=== PATIENT | female | born 1990 | race African-American/Black ===

== ENCOUNTER 2022-05-13 14:30 | Inpatient (IN) | payer OTHER ==
[2022-05-13 15:55] LABS: RETICULOCYTES 1.99 % (0.5-1.5)
[2022-05-13 16:41] LABS: URIC ACID 7.4 mg/dL (2.6-7.2)
[2022-05-13 17:55] LABS: BASO % 0.3 % (0-2.0); EOS % 0.6 % (0-4.5); HEMATOCRIT 34.7 % (32.4-45.2); HEMOGLOBIN 11.3 GM/dL (10.7-15.3); LYMPH % 24.6 % (8-40); MCH 28.7 pg (25.7-33.7); MCHC 32.6 g/dl (32.0-36.0); MEAN CELL VOLUME 88.1 fl (80-96); MEAN PLT VOLUME 11.1 fl (7.5-11.1); MONO % 8.8 % (3.8-10.2); NEUT % 65.7 % (42.8-82.8); PLATELET COUNT 210 10^3/uL (134-434); RBC 3.95 M/mm3 (3.60-5.2); RDW 14.1 % (11.6-15.6); WHITE BLOOD COUNT 5.1 K/mm3 (4.0-10.0)
[2022-05-13 18:00] LABS: INR 0.96 (0.83-1.09)
[2022-05-13 18:03] LABS: ACTIVATED PTT 26.9 SECONDS (25.2-36.5)
[2022-05-13 18:19] VITALS: BMI 25.0
[2022-05-13 18:19] LABS: CALCIUM 8.8 mg/dL (8.5-10.1)
[2022-05-13 18:20] LABS: BLOOD UREA NITROGEN 13.4 mg/dL (7-18)
[2022-05-13] MEDS: ELECTROLYTE-148 SOLN 1,000 ML IV SCH (18:20)
[2022-05-13 18:23] LABS: CREATININE 1.1 mg/dL (0.55-1.3)
[2022-05-13] MEDS ORDERED: OXYTOCIN 30 UNITS in 0.9% NS 30 UNIT/500 ML INFUS.BAG IVPB ONE (18:41)
[2022-05-13] MEDS: OXYTOCIN 30 UNITS in 0.9% NS 30 UNIT/500 ML INFUS.BAG IVPB SCH (18:45)
[2022-05-13 19:14] LABS: HIV INTERPRETATION NEGATIVE (NEGATIVE)
[2022-05-14] MEDS ORDERED: FENTANYL/BUPIVACAINE/NS/PF - PCEA - 50 ML DISP.SYRIN EP ONE (17:23)
[2022-05-14] MEDS ORDERED: NALOXONE HCL 0.4 MG/ML VIAL IVPUSH PRN (18:23)
[2022-05-14] MEDS ORDERED: FENTANYL/BUPIVACAINE/NS/PF - PCEA - 50 ML DISP.SYRIN EP SCH (18:30)
[2022-05-14] MEDS ORDERED: AMPICILLIN SODIUM 2 GM VIAL ONE (18:49)
[2022-05-14] MEDS ORDERED: AMPICILLIN - 2 GM in SODIUM CHLORIDE 100 ML IVPB ONE (19:00)
[2022-05-14] MEDS ORDERED: AMPICILLIN SODIUM 1 GM VIAL ONE (22:10)
[2022-05-14] MEDS ORDERED: AMPICILLIN - 1 GM in SODIUM CHLORIDE 100 ML IVPB SCH (23:00)
[2022-05-14] MEDS ORDERED: OXYTOCIN 20 UNITS in 0.9% NS 20 UNIT/1,000 ML INFUS.BAG IV ONE (23:04)
[2022-05-15] MEDS ORDERED: CITRIC ACID/SODIUM CITRATE 30 ML UNIT-DOSE CUP ONE (01:20)
[2022-05-15] MEDS ORDERED: LIDO 2%/EPI 1:200000 PRESRVFRE (20 ML SDVIAL) ONE (01:46)
[2022-05-15] MEDS ORDERED: OXYTOCIN 30 UNITS in 0.9% NS 30 UNIT/500 ML INFUS.BAG IVPB ONE (01:46)
[2022-05-15] MEDS ORDERED: ceFAZolin SODIUM 1 GM VIAL ONE (01:48)
[2022-05-15] MEDS ORDERED: METOCLOPRAMIDE HCL INJECTION 10 MG/2 ML VIAL ONE (01:48)
[2022-05-15] MEDS ORDERED: ONDANSETRON 4 MG/2 ML VIAL ONE (01:48)
[2022-05-15] MEDS ORDERED: PHENYLEPHRINE HCL 10 MG/1 ML SINGLE DOSE VIAL ONE (01:48)
[2022-05-15] MEDS ORDERED: FENTANYL CITRATE/PF 50 MCG/ML VIAL ONE (01:52)
[2022-05-15] MEDS: FENTANYL/BUPIVACAINE/NS/PF - PCEA - 50 ML DISP.SYRIN EP SCH (02:02)
[2022-05-15] MEDS: ELECTROLYTE-148 SOLN 1,000 ML IV SCH (02:03)
[2022-05-15] MEDS: OXYTOCIN 30 UNITS in 0.9% NS 30 UNIT/500 ML INFUS.BAG IVPB SCH (02:03)
[2022-05-15] MEDS ORDERED: morphine SULFATE/PF 1 MG/2 ML (2cc Syringe - QUVA) EP ONE (02:15)
[2022-05-15] MEDS ORDERED: TRANEXAMIC ACID 1000 MG/10 ML VIAL ONE (02:56)
[2022-05-15 03:25] LABS: CORD BASE EXCESS -5.4 mmol/L (0-2); CORD HCO3 20.7 mmHg (20-29); CORD PCO2 42.6 mmHg (30-78); CORD pH 7.305 (7.14-7.44)
[2022-05-15] MEDS ORDERED: BENZOCAINE 20% 57 GM BOTTLE TP PRN (03:30)
[2022-05-15] MEDS ORDERED: WITCH HAZEL 50% (TUCKS) 40 PAD/JAR PAD TP PRN (03:30)
[2022-05-15] MEDS ORDERED: SENNOSIDES/DOCUSATE COMBO (SENNA PLUS) TABLET (UD) PO PRN (03:30)
[2022-05-15] MEDS ORDERED: ACETAMINOPHEN 325 MG TABLET (FP) PO PRN (03:30)
[2022-05-15] MEDS ORDERED: IBUPROFEN 800 MG/8 ML IJ IVPB PRN (03:30)
[2022-05-15] MEDS ORDERED: OXYTOCIN 20 UNITS in 0.9% NS 20 UNIT/1,000 ML INFUS.BAG IV SCH (03:30)
[2022-05-15] MEDS ORDERED: BENZOCAINE 28 GM HEMORRHOIDAL OINTMENT TP PRN (03:30)
[2022-05-15] MEDS ORDERED: ONDANSETRON 4 MG/2 ML VIAL IVPUSH PRN (03:46)
[2022-05-15] MEDS ORDERED: IBUPROFEN 800 MG/8 ML IJ IVPB ONE (03:58)
[2022-05-15] MEDS ORDERED: OXYTOCIN 20 UNITS in 0.9% NS 20 UNIT/1,000 ML INFUS.BAG IV ONE (04:08)
[2022-05-15] MEDS ORDERED: CEFAZOLIN 1 GM/D5W 1 GM/50 ML BAG IVPB SCH (10:00)
[2022-05-15] MEDS: PRENATAL VITAMINS W/ FOLIC ACID TABLET (FP) PO SCH (10:01)
[2022-05-15] MEDS: CEFAZOLIN 1 GM in DEXTROSE 5%-WATER - 50 ML IVPB SCH ×2 (10:01→18:02)
[2022-05-15] MEDS ORDERED: oxyCODONE HCL 5 MG TABLET PO PRN ×2 (15:30)
[2022-05-15] MEDS: IBUPROFEN 600 MG TABLET (FP) PO PRN (18:02)
[2022-05-15] MEDS: SIMETHICONE 80 MG TAB.CHEW (FP) PO PRN (18:15)
[2022-05-16] MEDS: CEFAZOLIN 1 GM in DEXTROSE 5%-WATER - 50 ML IVPB SCH (02:16)
[2022-05-16] MEDS ORDERED: BISACODYL 10 MG SUPP.RECT RC PRN (03:30)
[2022-05-16] MEDS: IBUPROFEN 600 MG TABLET (FP) PO PRN ×2 (03:56→18:50)
[2022-05-16] MEDS: SIMETHICONE 80 MG TAB.CHEW (FP) PO PRN ×2 (03:56→18:50)
[2022-05-16 06:53] LABS: BASO % 0.2 % (0-2.0); EOS % 0.2 % (0-4.5); HEMOGLOBIN 9.4 GM/dL (10.7-15.3); LYMPH % 9.2 % (8-40); MCH 28.6 pg (25.7-33.7); MCHC 32.4 g/dl (32.0-36.0); MEAN CELL VOLUME 88.3 fl (80-96); MONO % 9.5 % (3.8-10.2); NEUT % 80.9 % (42.8-82.8); PLATELET COUNT 173 10^3/uL (134-434); RBC 3.29 M/mm3 (3.60-5.2); RDW 14.2 % (11.6-15.6); WHITE BLOOD COUNT 11.1 K/mm3 (4.0-10.0)
[2022-05-16] MEDS: ENOXAPARIN NA (PORCINE) 40 MG/0.4 ML DISP.SYRIN SQ SCH (10:54)
[2022-05-16] MEDS: PRENATAL VITAMINS W/ FOLIC ACID TABLET (FP) PO SCH (10:56)
[2022-05-17] MEDS: PRENATAL VITAMINS W/ FOLIC ACID TABLET (FP) PO SCH (10:00)
[2022-05-17] MEDS: ENOXAPARIN NA (PORCINE) 40 MG/0.4 ML DISP.SYRIN SQ SCH (10:58)
[2022-05-17] MEDS: FENTANYL/BUPIVACAINE/NS/PF - PCEA - 50 ML DISP.SYRIN EP SCH ×2 (18:56→18:57)
[2022-05-17 21:07] VITALS: RESP 18
[2022-05-18 09:08] LABS: BASO % 0.2 % (0-2.0); EOS % 1.4 % (0-4.5); HEMATOCRIT 27.9 % (32.4-45.2); HEMOGLOBIN 9.2 GM/dL (10.7-15.3); LYMPH % 13.8 % (8-40); MCHC 32.9 g/dl (32.0-36.0); MEAN CELL VOLUME 88.2 fl (80-96); MEAN PLT VOLUME 9.5 fl (7.5-11.1); MONO % 9.9 % (3.8-10.2); NEUT % 74.7 % (42.8-82.8); PLATELET COUNT 273 10^3/uL (134-434); RBC 3.17 M/mm3 (3.60-5.2); RDW 14.2 % (11.6-15.6)
[2022-05-18 09:12] VITALS: BP 105/62; PULSE 97; TEMP 98.1
[2022-05-18] MEDS: PRENATAL VITAMINS W/ FOLIC ACID TABLET (FP) PO SCH (10:48)
[2022-05-18] MEDS: SIMETHICONE 80 MG TAB.CHEW (FP) PO PRN (10:49)
[2022-05-18] MEDS: IBUPROFEN 600 MG TABLET (FP) PO PRN (10:49)
[2022-05-18] MEDS: ENOXAPARIN NA (PORCINE) 40 MG/0.4 ML DISP.SYRIN SQ SCH (10:50)
== END 2022-05-18 13:25 | disposition home or self-care (01) | DRG 540 ==
LOC: JDEL 14:30 → JLDR 17:00 → J3W 05-15 05:53
PROVIDERS: ADMIT Obstetrics & Gynecology; ATTEND Obstetrics & Gynecology
PROC: 10D00Z1 Extraction of Products of Conception, Low, Open Approach (ICD-10-PCS; principal; 2022-05-15)
DX: O14.94 Unspecified pre-eclampsia, complicating childbirth (principal); O99.824 Streptococcus B carrier state complicating childbirth; O62.1 Secondary uterine inertia; Z3A.39 39 weeks gestation of pregnancy; Z37.0 Single live birth
CPT/HCPCS: 36415; 36600; 80048; 82570; 82803; 82977; 83010; 84156; 84450; 84460; 84550; 85025; 85032; 85045; 85610; 85730; 86780; 86850; 86900; 86901; 87389; 88307-TC; C9803-CS; U0003; U0005

== ENCOUNTER 2024-11-26 12:26 | Day surgery (SDC) | payer OTHER ==
[2024-11-26] MEDS: IRON SUCROSE INJECTION 200 MG in SODIUM CHLORIDE 100 ML IVPB ONE (12:54)
[2024-11-26 14:59] VITALS: BP 108/75; PULSE 86; RESP 18; TEMP 98.9
== END 2024-11-26 15:02 | disposition home or self-care (01) ==
LOC: FINFUSION 12:26 → FM/S 12:29 → FINFUSION 15:02
PROVIDERS: ATTEND Obstetrics & Gynecology
PROC: 3E033GC Introduction of Other Therapeutic Substance into Peripheral Vein, Percutaneous Approach (ICD-10-PCS; principal; 2024-11-26)
DX: O99.013 Anemia complicating pregnancy, third trimester (principal); Z3A.37 37 weeks gestation of pregnancy; D64.9 Anemia, unspecified
CPT/HCPCS: 96365; J1756

== ENCOUNTER 2024-12-03 13:30 | Day surgery (SDC) | payer OTHER ==
[2024-12-03] MEDS: IRON SUCROSE INJECTION 200 MG in SODIUM CHLORIDE 100 ML IVPB ONE (14:04)
[2024-12-03 17:23] VITALS: BP 127/79; PULSE 80; RESP 18; TEMP 98.7
== END 2024-12-03 17:23 | disposition home or self-care (01) ==
LOC: FINFUSION 13:30 → FM/S 13:30 → FINFUSION 17:23
PROVIDERS: ATTEND Obstetrics & Gynecology
PROC: 3E033GC Introduction of Other Therapeutic Substance into Peripheral Vein, Percutaneous Approach (ICD-10-PCS; principal; 2024-12-03)
DX: O99.013 Anemia complicating pregnancy, third trimester (principal); D64.9 Anemia, unspecified; Z3A.37 37 weeks gestation of pregnancy
CPT/HCPCS: 96365; J1756

== ENCOUNTER 2024-12-10 13:04 | Day surgery (SDC) | payer OTHER ==
[2024-12-10] MEDS: IRON SUCROSE INJECTION 200 MG in SODIUM CHLORIDE 100 ML IVPB ONE (13:38)
[2024-12-10 15:00] VITALS: BP 123/84; PULSE 82; RESP 18; TEMP 98.3
== END 2024-12-10 15:02 | disposition home or self-care (01) ==
LOC: FM/S 13:04 → FINFUSION 13:04
PROVIDERS: ATTEND Obstetrics & Gynecology
PROC: 3E033GC Introduction of Other Therapeutic Substance into Peripheral Vein, Percutaneous Approach (ICD-10-PCS; principal; 2024-12-10)
DX: O99.013 Anemia complicating pregnancy, third trimester (principal); D64.9 Anemia, unspecified; Z3A.37 37 weeks gestation of pregnancy
CPT/HCPCS: 96365; J1756